=== PATIENT | male | born 1955 | race Caucasian/White ===

== ENCOUNTER → 2018-01-05 13:56 | Outpatient (CLI) | payer BC, SELFPAY ==
--- NOTE | 2018-01-05 13:57 | DI.REPORT_ITS ---
SYMPTOMS/DIAGNOSIS: BACK PAIN X 1 MONTH, M54.5, LT SIDED LOW BACK PAIN WITHOUT SCIATICA LUMBOSACRAL SPINE: Five views were obtained. The intervertebral disc spaces appear fairly well maintained. Mild hypertrophic spurring of the vertebral endplates and facet joints noted particularly in the lower lumbar region. There is no evidence of spondylolysis or spondylolisthesis. Mild degenerative changes of the SI joints noted. 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
== END ==
PROVIDERS: PCP Family Medicine; Visit Provider Family Medicine
DX: M54.5 Low back pain (principal); M47.816 Spondylosis without myelopathy or radiculopathy, lumbar region
CPT/HCPCS: 72110

== ENCOUNTER 2018-11-30 07:12 | Outpatient (CLI) | payer MEDICARE, BC, SELFPAY ==
[2018-11-30 08:11] LABS: Hemoglobin A1C 5.2 % (4.5-6.2)
[2018-11-30 08:51] LABS: Anion Gap 8.4 mmol/L (3-11); BUN 18 mg/dL (7-18); CO2 26.6 mmol/L (21.0-32.0); CREATININE 0.88 mg/dL (0.70-1.30); Calcium 8.9 mg/dL (8.5-10.1); Calculated LDL 78 mg/dL; Chloride 105 mmol/L (98-107); Cholesterol 161 mg/dL (50-200); Glucose 103 mg/dL (70-100); HDL Cholesterol 67 mg/dL (40-60); Potassium 4.3 mmol/L (3.5-5.1); Sodium 140 mmol/L (136-145); Triglyceride 80 mg/dL (30-150)
[2018-12-03 10:15] LABS: Rheumatoid Factor 8 IU/mL (<12.5)
[2018-12-03 14:30] LABS: ANA Interpretation Negative (NEGAT)
== END 2018-11-30 07:32 ==
PROVIDERS: PCP Family Medicine; Visit Provider Family Medicine
DX: M79.641 Pain in right hand (principal); M79.642 Pain in left hand; I10 Essential (primary) hypertension; R73.9 Hyperglycemia, unspecified
CPT/HCPCS: 36415; 80048; 80061; 83721; 83036; 86038; 86431

== ENCOUNTER 2019-01-04 09:04 | Outpatient (CLI) | payer MEDICARE, BC, SELFPAY ==
--- NOTE | 2019-01-04 09:00 | DI.RAD_ITS ---
SYMPTOM/DIAGNOSIS: PAIN RT HAND WITH EXERCISE, M79.643 RIGHT HAND: Three views. No acute fracture or dislocation is seen. There are mild degenerative changes seen in the interphalangeal joints of the hand. There is a small dystrophic calcification seen at the tip of the ulnar styloid process. No radiopaque foreign bodies are seen in the soft tissues. No suspicious lytic or sclerotic lesions are seen in the bones. IMPRESSION: Mild degenerative changes of the right hand.
== END 2019-01-04 09:24 ==
PROVIDERS: PCP Family Medicine; Visit Provider Family Medicine
DX: M79.641 Pain in right hand (principal); M19.041 Primary osteoarthritis, right hand
CPT/HCPCS: 73130

== ENCOUNTER → 2019-12-31 08:25 | Outpatient (BNVA) | payer MEDICARE, BC, SELFPAY | PROVIDERS: PCP Family Medicine; Referring Provider Family Medicine; Visit Provider Psychiatry & Neurology Neurology | DX: M54.17 Radiculopathy, lumbosacral region (principal); R25.2 Cramp and spasm; G57.31 Lesion of lateral popliteal nerve, right lower limb; G62.9 Polyneuropathy, unspecified; I10 Essential (primary) hypertension | CPT/HCPCS: 95885; 95908; 99205; 99215 ==

== ENCOUNTER 2020-01-06 00:43 | Outpatient (CLI) | payer MEDICARE, BC, SELFPAY ==
--- NOTE | 2020-01-06 07:15 | DI.MRI_ITS ---
EXAM: MR LUMBAR SPINE WO CLINICAL HISTORY: R S1 radiculopathy,M54.17. TECHNIQUE: Multiplanar multisequence MRI was performed. COMPARISON: MR MRI CERVICAL SP WO CONTRAST from 05/28/2019 FINDINGS: MR examination of the lumbosacral spine was performed according to the usual protocol. No significan t bony signal abnormality seen. Conus medullaris appears intact. No significant findings at L1-2. At L2-3, there is slight bilateral facet hypertrophic degenerative change. There is mild narrowing o f the lateral recesses bilaterally, no significant neural foraminal narrowing seen. At L3-4, there is a mild broad-based disc herniation which is most prominent right paracentral, there is mild narrowing of right lateral recess at this level. The right L4 nerve root could be impinged. There is mild bilateral hypertrophic facet change. No central canal spinal stenosis. No neural fo raminal stenosis. At L4-5, there is a mild disc bulge. No disc herniation, central canal spinal stenosis, neural mitali inal stenosis. At L5-S1 there is and unremarkable appearance of the intervertebral disc. No evidence of central can al spinal stenosis or neural foraminal stenosis. Mild bilateral facet hypertrophic changes. IMPRESSION: Mild broad-based predominantly right paracentral disc herniation at L3-4. Right L 4 nerve root could be impinged. Correlation with the patient's neurologic examination is requested. DATA REPOSITORY:
== END 2020-01-06 01:03 ==
PROVIDERS: PCP Family Medicine; Visit Provider Psychiatry & Neurology Neurology
DX: M51.26 Other intervertebral disc displacement, lumbar region (principal)
CPT/HCPCS: 72148

== ENCOUNTER 2020-10-21 16:37 | Emergency (ER) | payer MEDICARE, BC, SELFPAY ==
--- NOTE | 2020-10-21 16:44 | ED.GENADUL_ITS ---
Discharge Plan Disposition Patient Disposition: HOME Condition: Stable Discharge Details Clinical Impression: Leg swelling Primary Care Provider: Mehrdad Win ED Provider: Wellington Owens Home Meds and New Rx's Prescriptions: Continued trazodone 50 mg tablet 50 mg PO QHS PRN (Reason: sleep) Qty: 30 RF: 6 albuterol sulfate [Proventil HFA] 90 mcg/actuation HFA aerosol inhaler 2 puff Inhalation Q6H PRN Qty: 1 RF: 5 fluticasone propionate [Flonase Allergy Relief] 50 mcg/actuation spray,suspension 1 - 2 spray NS DAILY Qty: 15.8 RF: 5 Flovent HFA 110 mcg/actuation HFA aerosol inhaler 2 puff Inhalation BID Qty: 1 RF: 4 hydrochlorothiazide 25 mg tablet 25 mg PO DAILY Qty: 30 RF: 5 losartan 100 mg tablet 100 mg PO DAILY Qty: 30 RF: 4 sildenafil 100 mg tablet See Rx Instructions PO ONCE Qty: 20 RF: 3 gabapentin 300 mg capsule 300 mg PO QHS Qty: 60 RF: 6 acetaminophen [Tylenol] 325 MG tablet 650 mg PO PRN PRNRF: 0 Discharge Instructions Instructions: Edema (ED) Additional Instructions: Given your evaluation, clinically I have a low suspicion for DVT but I do believe that obtaining an ultrasound of your legs is completely reasonable. I have filled out the appropriate paperwork for the ultrasound to take place, please contact radiology tomorrow morning during business hours to set up your ultrasound. After the ultrasound you will check back into the ER for the results. In the meantime, please watch for new or worsening symptoms and return to the ER for any concerns. Lastly, I do recommend contacting your primary care provider tomorrow after ultrasound to discuss your ongoing symptoms and need for outpatient reevaluation. Medical Decision Making 65-year-old gentleman presents to the ER complaining of bilateral leg pain that has been present for years, now with intermittent swelling over the past couple of months, worse on the left side but currently has none in either leg. Discussed symptoms over the portal with his primary care provider, sent to the ER for DVT rule out. He denies any shortness of breath, chest pain, current swelling of his legs, redness, warmth, history of DVT. Unfortunately he is here after typical hours when we have ultrasound on staff. Patient states himself that he does not believe he has a DVT, clinically I have extremely low suspicion. Therefore will not prophylactically treat with a single dose of Lovenox now. We will set him up for a bilateral lower extremity venous ultrasound tomorrow to further evaluate for potential DVT. He will return to the ER for result, and he will also contact his primary care provider for his ongoing symptoms which will likely require outpatient reevaluation. Patient was encouraged to return to the ER sooner as needed. He has no additional questions or concerns and is comfortable with this plan. Medical Records Medical records reviewed: Yes I reviewed the patient's medical records. HPI General Mode of arrival: ambulatory . Date/Time Provider Initiated Documentation: 10/21/20 16:42 . Limitations to Documentation: no limitations . Information obtained by: patient . HPI Narrative: This is a 65-year-old gentleman with a past medical history that includes asthma, chronic back pain with radiculopathy,, hypertension, aneurysm of the ascending aorta being monitored as an outpatient. He is presenting today for ongoing right leg pain that he states is in the posterior leg both upper and lower for years, now with bilateral intermittent leg swelling. He believes that the swelling is worse in his left leg when compared to his right although currently has no swelling whatsoever. He states that he contacted his primary care provider today and was directed to the ER to rule out a DVT. Patient denies history of DVT, chest pain, shortness of breath. He is not anticoagulated. He denies any current swelling in his legs, redness, warmth, calf pain in his left leg. He reports th at he does have pain in his right calf but it is chronic. Denies numbness, tingling, weakness. Patient states that the swelling is typically worse after a long day on his feet and improves typically in the morning. He does state that on September [address] here from [place]. The swelling has been intermittent at present for a couple of months. Related Data Home Medications Medication Instructions Recorded Confirmed acetaminophen [Tylenol] 650 mg PO PRN PRN 12/11/17 02/13/20 albuterol sulfate 90 mcg/actuation 2 puff INHALATION Q6H PRN #1 05/04/20 aerosol inhaler inhaler fluticasone propionate 110 2 puff INHALATION BID #1 inhaler 05/04/20 mcg/actuation HFA aerosol inhaler fluticasone propionate 50 1 - 2 spray NS DAILY #15.8 ml 05/04/20 mcg/actuation nasal spray,suspension hydrochlorothiazide 25 mg tablet 25 mg PO DAILY #30 tab 05/04/20 losartan 100 mg tablet 100 mg PO DAILY #30 tab-cap 05/04/20 sildenafil 100 mg tablet See Rx Instructions PO ONCE #20 tab 05/04/20 trazodone 50 mg tablet 50 mg PO QHS PRN #30 tab 09/15/20 09/15/20 gabapentin 300 mg capsule 300 mg PO QHS #60 cap 10/02/20 Previous Rx's Medication Instructions Recorded albuterol sulfate 90 mcg/actuation 2 puff INHALATION Q6H PRN #1 05/04/20 aerosol inhaler inhaler fluticasone propionate 110 2 puff INHALATION BID #1 inhaler 05/04/20 mcg/actuation HFA aerosol inhaler fluticasone propionate 50 1 - 2 spray NS DAILY #15.8 ml 05/04/20 mcg/actuation nasal spray,suspension hydrochlorothiazide 25 mg tablet 25 mg PO DAILY #30 tab 05/04/20 losartan 100 mg tablet 100 mg PO DAILY #30 tab-cap 05/04/20 sildenafil 100 mg tablet See Rx Instructions PO ONCE #20 tab 05/04/20 trazodone 50 mg tablet 50 mg PO QHS PRN #30 tab 09/15/20 gabapentin 300 mg capsule 300 mg PO QHS #60 cap 10/02/20 Allergies Allergy/AdvReac Type Severity Reaction Status Date / Time Iodinated Contrast Media Allergy Unverified 09/15/20 11:11 [Iodinated Contrast- Oral and IV Dye] aspartame AdvReac Intermediate MIGRAINE Unverified 09/15/20 11:11 chocolate flavor AdvReac Mild MIGRAINE Unverified 09/15/20 11:11 Review of Systems Constitutional Constitutional: Denies fever(s) and Denies weakness Cardiovascular Cardiovascular: Denies chest pain and Denies dyspnea Respiratory Respiratory: Denies dyspnea Musculoskeletal Musculoskeletal: Denies numbness and Denies tingling Integumentary/Breasts Skin/Breast: Denies erythema and Denies rash Neurologic Neurologic: Denies numbness, Denies tingling and Denies weakness [facility] Medical History Aneurysm, ascending aorta (08/24/15) [place] [facility] [place] 2012 Asthma Back pain BPH loc w/o ur obs/LUTS (08/24/15) Derange anterior horn medial meniscus left knee due to old injury (08/24/15) Got better with physical therapy Essential hypertension Neck pain Overactive bladder (08/24/15) Sciatica of right side Sexual function problem Surgical History Rotator Cuff Repair (~1999) RIGHT S/P lumbar spine operation S/P skin cancer resection Status post rotator cuff repair Family History Brother Dissection of aorta Aortic aneurysm Brother Sarcoma Aortic aneurysm Mother , 92 Heart disease Father Dissection of aorta Heart disease Brother Aortic aneurysm Brother Aortic aneurysm Social History Smoking/Tobacco Use Status: Never Smoking risk assessment performed?: Yes Alcohol Intake: current Alcohol Intake frequency: 0-2 drinks per day Alcohol type: beer and wine Drug use: Never Substance use type: does not use Caregiver/Support person: No Household members: spouse Housing: house Communication Needs: None Do you need help understanding health information?: Rarely Pets and animals: Yes Pets and animals: dog(s) Sexually active: No Do you think of yourself as: straight/heterosexual Current gender identity: male What is your relationship status?: How often do you talk on the phone with friends or family?: decline to answer How often do you get together with friends or relatives?: decline to answer How often do you attend jehovah's witness or sikhism services?: decline to answer Do you belong to any clubs or organized social groups?: decline to answer Panel score (0-1 are the most socially isolated patients): 1 What type of physical activity do you participate in: walking Duration: > 90 minutes/day Frequency: 5-6 times per week Nimco/Restoration: Religious Special nimco needs: No Seatbelt use: always Drive intox or ride w/intox recycle driver: No Do you feel safe in your relationship?: Yes Exam Const General: cooperative, healthy appearing, comfortable and no acute distress Orientation: alert and awake [facility] Head: normal to inspection, normocephalic and atraumatic Eyes General: appearance normal, both eyes and all related structures Conjunctivae: conjunctivae normal Neck Neck: normal visual inspection, trachea midline and supple Resp Effort & Inspection: normal respiratory effort and able to speak in complete sentences Auscultation: clear to auscultation bilaterally Cardio Rate: regular rate Rhythm: regular rhythm Skin General skin exam: no rashes or lesions noted Neuro General: patient alert, patient awake, moves all extremities and no focal motor deficits Cognition: normal cognition Speech: speech normal Gait: normal gait Motor: muscle tone normal throughout Sensory Exam: no sensory deficits noted Extrem General: normal to inspection, full ROM, capillary refill normal, no pedal edema, no calf tenderness and other (Negative Homans bilaterally) Psych Appearance: grossly normal Mental Status: mental status grossly normal
[2020-10-21 16:45] VITALS: PULSE 72; RESP 13; TEMP 36.5; O2SAT 96
[2020-10-21 17:31] VITALS: PULSE 72; RESP 13; RESP 16; TEMP 36.5; O2SAT 96
== END 2020-10-21 17:29 | disposition home or self-care (01) ==
PROVIDERS: Emergency Provider Physician Assistant; PCP Nurse Practitioner Family
DX: R22.43 Localized swelling, mass and lump, lower limb, bilateral (principal)
CPT/HCPCS: 99281; 99283

== ENCOUNTER 2020-10-22 08:48 | Emergency (ER) | payer MEDICARE, BC, SELFPAY ==
[2020-10-22 08:56] VITALS: BP 152/98; PULSE 65; RESP 16; TEMP 36.9; O2SAT 98
--- NOTE | 2020-10-22 12:13 | W.ED.GENAD ---
Discharge Plan Disposition Patient Disposition: HOME Condition: Good Discharge Details Clinical Impression: Peripheral edema Primary Care Provider: Mehrdad Win ED Provider: Yolanda Cleaning Home Meds and New Rx's Prescriptions: No Action trazodone 50 mg tablet 50 mg PO QHS PRN (Reason: sleep) Qty: 30 RF: 6 albuterol sulfate [Proventil HFA] 90 mcg/actuation HFA aerosol inhaler 2 puff Inhalation Q6H PRN Qty: 1 RF: 5 fluticasone propionate [Flonase Allergy Relief] 50 mcg/actuation spray,suspension 1 - 2 spray NS DAILY Qty: 15.8 RF: 5 Flovent HFA 110 mcg/actuation HFA aerosol inhaler 2 puff Inhalation BID Qty: 1 RF: 4 hydrochlorothiazide 25 mg tablet 25 mg PO DAILY Qty: 30 RF: 5 losartan 100 mg tablet 100 mg PO DAILY Qty: 30 RF: 4 sildenafil 100 mg tablet See Rx Instructions PO ONCE Qty: 20 RF: 3 gabapentin 300 mg capsule 300 mg PO QHS Qty: 60 RF: 6 acetaminophen [Tylenol] 325 MG tablet 650 mg PO PRN PRNRF: 0 Discharge Instructions Additional Instructions: Please follow-up with Dr. Leigh Your ultrasound today was negative Please return should you have new or worsening complaints Medical Decision Making Patient with acute on chronic peripheral edema, negative ultrasound per radiology interpretation in my review Patient declines additional evaluation, he will follow up with his primary care physician, he does report persistent cramping to bilateral lower extremities which is not new for him but declines additional evaluation at this time He denies any chest pain or shortness of breath He states that he has marked improvement to his peripheral edema today He is given a threshold to return with new or worsening complaints and he will be referred back to his primary care physician, Dr. Leigh Differential Diagnosis Differential Diagnosis: Pulmonary embolism, DVT, CHF, peripheral edema Medical Records Medical records reviewed: Yes I reviewed the patient's medical records. Lab Data Lab results reviewed: Yes I reviewed the patient's lab results. HPI General Mode of arrival: ambulatory. Date/Time Provider Initiated Documentation: 10/22/20 08:56. Limitations to Documentation: no limitations. Information obtained by: patient. HPI Narrative: This 65-year-old male with past medical history of hypertension, ascending aortic aneurysm, lower extremity pain, chronic back pain, peripheral edema presents with report of peripheral edema over the past several days for which she was evaluated in the emergency room yesterday. He states that he had an ultrasound performed this morning and is presenting for the results of his ultrasound. He actually states that the swelling has markedly improved. He denies any new chest pain or shortness of breath. He denies any abdominal pain. He denies any skin discoloration to his lower extremities. He denies any recent flights, surgeries, long drives. Related Data Home Medications Medication Instructions Recorded Confirmed acetaminophen [Tylenol] 650 mg PO PRN PRN 12/11/17 02/13/20 albuterol sulfate 90 mcg/actuation 2 puff INHALATION Q6H PRN #1 05/04/20 aerosol inhaler inhaler fluticasone propionate 110 2 puff INHALATION BID #1 inhaler 05/04/20 mcg/actuation HFA aerosol inhaler fluticasone propionate 50 1 - 2 spray NS DAILY #15.8 ml 05/04/20 mcg/actuation nasal spray,suspension hydrochlorothiazide 25 mg tablet 25 mg PO DAILY #30 tab 05/04/20 losartan 100 mg tablet 100 mg PO DAILY #30 tab-cap 05/04/20 sildenafil 100 mg tablet See Rx Instructions PO ONCE #20 tab 05/04/20 trazodone 50 mg tablet 50 mg PO QHS PRN #30 tab 09/15/20 09/15/20 gabapentin 300 mg capsule 300 mg PO QHS #60 cap 10/02/20 Previous Rx's Medication Instructions Recorded albuterol sulfate 90 mcg/actuation 2 puff INHALATION Q6H PRN #1 05/04/20 aerosol inhaler inhaler fluticasone propionate 110 2 puff INHALATION BID #1 inhaler 05/04/20 mcg/actuation HFA aerosol inhaler fluticasone propionate 50 1 - 2 spray NS DAILY #15.8 ml 05/04/20 mcg/actuation nasal spray,suspension hydrochlorothiazide 25 mg tablet 25 mg PO DAILY #30 tab 05/04/20 losartan 100 mg tablet 100 mg PO DAILY #30 tab-cap 05/04/20 sildenafil 100 mg tablet See Rx Instructions PO ONCE #20 tab 05/04/20 trazodone 50 mg tablet 50 mg PO QHS PRN #30 tab 09/15/20 gabapentin 300 mg capsule 300 mg PO QHS #60 cap 10/02/20 Allergies Allergy/AdvReac Type Severity Reaction Status Date / Time Iodinated Contrast Media Allergy Unverified 09/15/20 11:11 [Iodinated Contrast- Oral and IV Dye] aspartame AdvReac Intermediate MIGRAINE Unverified 09/15/20 11:11 chocolate flavor AdvReac Mild MIGRAINE Unverified 09/15/20 11:11 General Stated Complaint: Recheck SUNG: 5 Review of Systems Narrative: Review of systems obtained x7 aside from where indicated in HPI [facility] Medical History Aneurysm, ascending aorta (08/24/15) Followed at [facility] [place]. Stable May 2012 Asthma Back pain BPH loc w/o ur obs/LUTS (08/24/15) Derange anterior horn medial meniscus left knee due to old injury (08/24/15) Got better with physical therapy Essential hypertension Neck pain Overactive bladder (08/24/15) Sciatica of right side Sexual function problem Surgical History Rotator Cuff Repair (~1999) RIGHT S/P lumbar spine operation S/P skin cancer resection Status post rotator cuff repair Family History Brother Dissection of aorta Aortic aneurysm Brother Sarcoma Aortic aneurysm Mother , 92 Heart disease Father Dissection of aorta Heart disease Brother Aortic aneurysm Brother Aortic aneurysm Social History Smoking/Tobacco Use Status: Never Smoking risk assessment performed?: Yes Alcohol Intake: current Alcohol Intake frequency: 0-2 drinks per day Alcohol type: beer and wine Drug use: Never Substance use type: does not use Caregiver/Support person: No Household members: spouse Housing: house Communication Needs: None Do you need help understanding health information?: Rarely Pets and animals: Yes Pets and animals: dog(s) Sexually active: No Do you think of yourself as: straight/heterosexual Current gender identity: male What is your relationship status?: How often do you talk on the phone with friends or family?: decline to answer How often do you get together with friends or relatives?: decline to answer How often do you attend tenriism or tenriism services?: decline to answer Do you belong to any clubs or organized social groups?: decline to answer Panel score (0-1 are the most socially isolated patients): 1 What type of physical activity do you participate in: walking Duration: > 90 minutes/day Frequency: 5-6 times per week Nimco/Confucianism: Episcopalian Special nimco needs: No Seatbelt use: always Drive intox or ride w/intox cdl truck driver: No Do you feel safe at home: Yes Do you feel safe in your relationship?: Yes Exam Const General: cooperative, comfortable and no acute distress Resp Effort & Inspection: normal respiratory effort Auscultation: clear to auscultation bilaterally Cardio Rate: regular rate Rhythm: regular rhythm GI Other: No pulsatile mass, nontender, no CVA tenderness or bruising Skin General skin exam: no rashes or lesions noted Neuro General: patient alert and patient oriented x3 Extrem Other: Distal pulses intact to bilateral upper and lower extremities, 1+ edema to lower extremity, nontender Course Vital Signs Vital signs: Vital Signs Temperature 36.9 C 10/22/20 08:56 Pulse 65 10/22/20 08:56 Respiratory Rate 16 10/22/20 08:56 Blood Pressure 152/98 H 10/22/20 08:56 Pulse Oximetry 98 10/22/20 08:56 Temperature 36.9 C 10/22/20 08:56 Temperature Source Skin 10/22/20 08:56 Pulse 65 10/22/20 08:56 Respiratory Rate 16 10/22/20 08:56 Respiratory Effort Non-Labored 10/22/20 09:19 Blood Pressure 152/98 H 10/22/20 08:56 Blood Pressure Position Sitting 10/22/20 08:56 Pulse Oximetry 98 10/22/20 08:56 Oxygen Delivery Method Room Air 10/22/20 08:56 Oxygen Flow Rate 0 10/22/20 08:56 Pain Level 0 10/22/20 08:56
== END 2020-10-22 09:17 | disposition home or self-care (01) ==
PROVIDERS: Emergency Provider Physician Assistant; PCP Nurse Practitioner Family
DX: R60.0 Localized edema (principal)

== ENCOUNTER 2020-10-22 11:29 | Outpatient (CLI) | payer MEDICARE, BC, SELFPAY ==
--- NOTE | 2020-10-22 | DI.US_ITS ---
Exam(s) US EXTREMITY VENOUS BI EXAM: US EXTREMITY VENOUS BI CLINICAL HISTORY: PAIN/SWELLING. TECHNIQUE: Bilateral lower extremity venous ultrasound performed using grayscale, color-flow, and sp ectral Doppler analysis. COMPARISON: No exams were available for comparison FINDINGS: The bilateral common femoral, femoral and popliteal veins demonstrate normal compressibility, augment ation, and color Doppler. The posterior tibial veins are patent. No superficial thrombophlebitis is identified. No Hope's cyst or hematoma is seen. IMPRESSION: Right: Negative for DVT Left: Negative for DVT DATA REPOSITORY:
== END 2020-10-22 11:49 ==
PROVIDERS: PCP Nurse Practitioner Family; Visit Provider Physician Assistant
DX: M79.662 Pain in left lower leg (principal); R22.43 Localized swelling, mass and lump, lower limb, bilateral; M79.661 Pain in right lower leg
CPT/HCPCS: 93970

== ENCOUNTER 2020-11-03 02:59 | Outpatient (CLI) | payer MEDICARE, BC, SELFPAY ==
[2020-11-03 12:28] LABS: HCT 43.1 % (40.0-50.0); HGB 13.9 g/dL (13.5-17.5); MCH 28.2 pg (27.0-33.0); MCHC 32.3 % (32.0-36.0); MCV 87.4 fL (80-95); MPV 9.9 fL (8.0-11.0); Platelet Count 220 10^3/uL (130-400); RBC 4.93 10^6/uL (4.36-5.78); RDW-SD 44.4 fL; WBC 5.89 10^3/uL (4.4-10.8)
[2020-11-03 13:14] LABS: ALT 26 U/L (16-63); AST 18 U/L (15-37); Albumin 3.4 g/dL (3.4-5.0); Alkaline Phosphatase 65 U/L (46-116); Anion Gap 9.6 mmol/L (3-11); BUN 15 mg/dL (7-18); Bilirubin, Total 0.5 mg/dL (0.2-1.0); CO2 25.4 mmol/L (21.0-32.0); Calcium 8.8 mg/dL (8.5-10.1); Chloride 107 mmol/L (98-107); Glucose 89 mg/dL (74-106); Potassium 4.1 mmol/L (3.5-5.1); Sodium 142 mmol/L (136-145); Total Protein 6.3 g/dL (6.4-8.2)
== END 2020-11-03 03:00 | disposition home or self-care (01) ==
LOC: LOS 03:00
PROVIDERS: PCP Nurse Practitioner Family; Visit Provider Nurse Practitioner Family
DX: R25.2 Cramp and spasm (principal); R19.8 Other specified symptoms and signs involving the digestive system and abdomen; M79.661 Pain in right lower leg
CPT/HCPCS: 36415; 80053; 85027

== ENCOUNTER 2020-12-15 11:48 | Outpatient (CLI) | payer MEDICARE, BC, SELFPAY ==
--- NOTE | 2020-12-15 06:00 | DI.RAD_ITS ---
Exam(s) XR PAIN CLINIC LUMBAR SP 2V EXAM: XR PAIN CLINIC LUMBAR SP 2V CLINICAL HISTORY: Dx: Lumbar Radiculopathy TECHNIQUE: 2D and realtime digital imaging was performed. COMPARISON: No exams were available for comparison FINDINGS: C-arm fluoroscopy is utilized by Dr. Tarango during apparent sacral epidural injection. Please see the pr ocedure note. IMPRESSION: RADIATION DOSE DELIVERED: Ka,r=5.85 mGy Total DLP
[2020-12-15 11:56] VITALS: BP 150/91; PULSE 66; RESP 18; TEMP 36.6; O2SAT 97
[2020-12-15] MEDS: Dexamethasone Sod. Phos./Pres-Free 10 MG/ML VIAL IJ (13:10)
[2020-12-15 13:44] VITALS: BP 168/96; PULSE 72; RESP 17; O2SAT 99
--- NOTE | 2020-12-15 14:29 | PDOC.PAIN_ITS ---
Pain Clinic Procedure Note Procedure Note Procedure Note: CANDAL EPIDURAL STEROID WITH CATHETER INJECTION PROCEDURE NOTE Pre-operative diagnosis: lumbar radiculitis Post-operative diagnosis: same as above COMMENTS: patient is status post right L4-5 hemilaminectomy with partial facetectomy, foraminotomy and discectomy (05/2018) in [place] for persistent right leg pain and weakness with dorsiflexion and plantar flexion. patient reports he regained his muscle strength of right foot although those muscles feel slower compared to the left leg. He splits his time between [place] and [place]. He was seen by Dr Cavanaugh at [facility] [place] for chronic right leg pain and was tried on several oral regimen including CBZ, GBP and lyrica. 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 there is also evidence of right peroneal neuropathy and delayed right tibial F wave. Patient was also seen by Dr Thomson in 12/11/2020 who did not think there was any indication for surgical intervention. Curently, patient has pain involving right posterior buttock, right calf. Pain level averages 4-6 depending on the intensity of physical activity. Unfortunately, he cannot tolerate oral neuropathic pain agents. He underwent right L5 TFESI by outside record in [place] which provided 2 weeks of 70% pain relief after 1st injection and on repeat injection in 04/2020, provided approximately 2 months of pain relief. patient has a listed iodine contrast media allergy with diffuse hives after an image of his shoulder about 10 years ago. He had received Solumedrol, Benadryl and Versed during his procedure in [place]. Per [facility] protocol for premedication of contrast allergy, for elective procedures, patient needs to take oral prednisone starting 11 hours before his scheduled procedure. Given this, i discussed with patient about changing the approach of the procedure from TFESI to caudal , which can be safely performed without the need of contrast and allow catheter to reach S1 level which will pro vide symptomatic relief patient is also instructed to follow up with Dr Cavanaugh with regard to lumbar radiculitis versus adhesive arachnoiditis. Gael Lizarraga has been referred to the [facility] for lumbar epidural steroid injection. Patient was greeted by the nurse who verified patients name and . Patient was then taken to the fluoroscopy suite. Patient was interviewed and the medical record reviewed. There were no medical, pharmacologic, radiographic, or other structural contraindications to attempting fluoroscopically guided lumbar epidural steroid injection. Risks and expected side effects as well as potential benefits of the procedure were reviewed and voiced concerns addressed. The patient consent form was signed and witnessed. Standard time-out procedure was performed. Patient was placed in the prone position on the fluoroscopy table and automated blood pressure cuff and pulse oximeter applied. The skin entry point for entering/approaching the epidural space by a sacral hiatus and marked. Following thorough chlorhexadine preparation of the skin and draping and 1% lidocaine infiltration of the skin entry point and subcutaneous tissues, a 17 gauge Touhy needle was placed under fluoroscopic guidance and with loss of resistance technique into the epidural space. Needle tip placement and depth were aided and confirmed by fluoroscopy. There was no paresthesia or return of blood or CSF through the needle. An Arrow cath was thread to the S1 and no Omnipaque 240 was injected with clear epidural spread confirmed with fluoroscopy. 15mg of preservative free dexamethasone was injected followed by 1cc of preservative free 1% lidocaine. There was not any unusual discomfort expressed. Vital signs were stable throughout the procedure and were as recorded in nursing records. Follow up plans and appointments were discussed.Post procedure instruction was given as documented in nursing records and having met discharge criteria and was discharged from the [facility]. COMMENTS: patient reports pre-VAS score 5/10 and post-procedure pain level 0/10. For future injection purposes, please follow [facility]'s established pre=medication protocol for existing contrast allergy as follows: for elective procedure: a. prednisone - 50mg by mouth at 13 hours, 7 hours and 1 hour before receiving contrast medial with IV benadryl 50mg IV 1 hour before receiving contrast If this procedure fails to achieve significant pain relief, would recommend investigate with MRI L spine wwo contrast to rule out adhesive arachnoiditis as a potential cause of pain. Julián Tarango MD Pain Management
== END 2020-12-15 11:49 | disposition home or self-care (01) ==
LOC: PC 11:48
PROVIDERS: PCP Nurse Practitioner Family; Visit Provider Internal Medicine
DX: M54.16 Radiculopathy, lumbar region (principal)
CPT/HCPCS: 62323; 72100

== ENCOUNTER → 2021-09-20 13:43 | Outpatient (CLI) | payer MEDICARE, BC, SELFPAY ==
--- NOTE | 2021-09-20 11:15 | DI.US_ITS ---
Exam(s) US LOWER EXTREMITY VENOUS RT EXAM: US LOWER EXTREMITY VENOUS RT CLINICAL HISTORY: pain right calf, post op, M79.604. TECHNIQUE: Lower extremity venous ultrasound performed using grayscale, color-flow, and spectral Do ppler analysis. COMPARISON: No exams were available for comparison FINDINGS: The common femoral, femoral and popliteal veins demonstrate normal compressibility, augmentation, and color Doppler. The posterior tibial veins are patent. Thrombus is noted in the saphenous vein from the thigh to the ankle. There is no abnormal dilatation. Finding may be secondary to sclerotherapy. . No hematoma or Hope's cyst is seen. Edema in proximal calf. IMPRESSION: Saphenous vein noncompressible is could be secondary to sclerotherapy.. No evidence of DVT. DATA REPOSITORY:
== END ==
PROVIDERS: PCP Nurse Practitioner Family; Visit Provider Physician Assistant
DX: M79.604 Pain in right leg (principal); I82.811 Embolism and thrombosis of superficial veins of right lower extremity
CPT/HCPCS: 93971

== ENCOUNTER 2022-12-20 03:56 | Outpatient (CLI) | payer MEDICARE, BC, SELFPAY ==
[2022-12-20 10:29] LABS: Estimated GFR 81.47 (mL/min/1.73m2)
== END 2022-12-20 03:57 | disposition home or self-care (01) ==
PROVIDERS: PCP Nurse Practitioner Family; Visit Provider Nurse Practitioner Family
DX: I10 Essential (primary) hypertension (principal)
CPT/HCPCS: 36415; 82565; 84132

== ENCOUNTER → 2023-11-22 10:55 | Outpatient (CLI) | payer MEDICARE, BC, SELFPAY ==
--- NOTE | 2023-11-22 11:03 | DI.RAD_ITS ---
Exam(s) XR KNEE RT 3V AP,LAT,JORGE EXAM: XR KNEE RT 3V AP,LAT,JORGE CLINICAL HISTORY: evaluate pathology, M25.561. TECHNIQUE: 2D digital imaging was performed. Three views. COMPARISON: No exams were available for comparison FINDINGS: BONES: No acute fracture is present. No bony destructive lesion is seen. JOINTS: The knee is normally aligned. No joint effusion is seen. The joint spaces are maintained. No visible degenerative changes. SOFT TISSUE: Normal. IMPRESSION: Unremarkable radiographs of the right knee. DATA REPOSITORY: RADIATION DOSE DELIVERED:
== END ==
PROVIDERS: PCP Nurse Practitioner Family; Visit Provider Nurse Practitioner Family
DX: M25.561 Pain in right knee (principal)
CPT/HCPCS: 73562

== ENCOUNTER 2024-03-04 10:50 | Outpatient (CLI) | payer MEDICARE, BC, SELFPAY ==
[2024-03-04 09:03] LABS: Calculated LDL 90 mg/dL (<100); Cholesterol 168 mg/dL (<200); Estimated GFR 80.47 (mL/min/1.73m2); HDL Cholesterol 66 mg/dL (40-60); Potassium 3.9 mmol/L (3.5-5.1); Triglyceride 64 mg/dL (<150)
[2024-03-04 18:27] LABS: PSA, Screening 4.2 ng/mL (<=6.5)
== END 2024-03-04 10:51 | disposition home or self-care (01) ==
LOC: LBO 10:50
PROVIDERS: PCP Nurse Practitioner Family; Visit Provider Nurse Practitioner Family
DX: Z12.5 Encounter for screening for malignant neoplasm of prostate (principal); I10 Essential (primary) hypertension; Z13.6 Encounter for screening for cardiovascular disorders
CPT/HCPCS: 36415; 80061; 84153; 82565; 84132

== ENCOUNTER 2025-02-28 10:13 | Emergency (ER) | payer MEDICARE, BC, SELFPAY ==
[2025-02-28 10:16] VITALS: BP 188/110; PULSE 70; RESP 16; TEMP 36.9; O2SAT 98
[2025-02-28 10:19] VITALS: BP 188/110; PULSE 70; RESP 16; TEMP 36.9; O2SAT 98
--- NOTE | 2025-02-28 10:45 | DI.US_ITS ---
Exam(s) US SCROTUM EXAM: US SCROTUM CLINICAL HISTORY: L testicular pain. TECHNIQUE: Scrotal ultrasound performed using grayscale, color-flow and spectral Doppler analysis. COMPARISON: No exams were available for comparison FINDINGS: RIGHT TESTICLE: 4.4 x 2.6 x 3.0 cm Echogenicity: Normal. Contour: Smooth. Mass: None seen. Microlithiasis: None. Hydrocele: 6 x 4 x 2.5 cm. Varicocele: None. Hernia: No peristalsing bowel loop identified. Epididymis: 6 millimeter spermatocele in the head. Scrotum: Normal. LEFT TESTICLE: 4.0 x 2.7 x 3.6 cm Echogenicity: Normal. Contour: Smooth. Mass: None seen. Microlithiasis: None. Hydrocele: 6 0.1 x 3.4 x 3.8 cm. Varicocele: None. Hernia: No peristalsing bowel loop identified. Epididymis: Normal. Scrotum: Normal. DOPPLER: Color: Symmetric and uniform, no hyperemia. Duplex: Bilateral testicular arterial waveforms visualized. IMPRESSION: Bilateral hydroceles. Normal appearing testicles. DATA REPOSITORY:
[2025-02-28] MEDS: methylPREDNISolone SUCC 125 MG VIAL IVP (11:38)
[2025-02-28] MEDS: diphenhydrAMINE 50 MG/ML VIAL 25 MG IVP (11:39)
[2025-02-28 11:48] LABS: Glucose Negative (Negative)
[2025-02-28 11:49] LABS: Abs Immature Grans 0.02 10^3/uL (0.0-0.06); HCT 39.6 % (40.0-50.0); HGB 13.0 g/dL (13.5-17.5); Immature Grans % 0.3 %; MCH 28.4 pg (27.0-33.0); MCHC 32.8 % (32.0-36.0); MCV 87 fL (80-95); MPV 9.3 fL (8.0-11.0); Platelet Count 184 10^3/uL (130-400); RBC 4.57 10^6/uL (4.36-5.78); RDW 13.8 % (11.8-14.1); RDW-SD 43.7 fL; WBC 6.49 10^3/uL (4.4-10.8)
[2025-02-28 12:03] LABS: Magnesium 2.4 mg/dL (1.8-2.4)
[2025-02-28 12:09] LABS: ALT 23 U/L (16-63); AST 16 U/L (15-37); Albumin 3.7 g/dL (3.4-5.0); Alkaline Phosphatase 62 U/L (46-116); Anion Gap 8.4 mmol/L (3-11); BUN 17 mg/dL (7-18); Bilirubin, Total 0.8 mg/dL (0.2-1.0); CO2 28.6 mmol/L (21.0-32.0); Calcium 9.2 mg/dL (8.5-10.1); Chloride 104 mmol/L (98-107); Estimated GFR 79.97 (mL/min/1.73m2); Glucose 85 mg/dL (74-106); Lipase 36 U/L (<78); Potassium 4.2 mmol/L (3.5-5.1); Sodium 141 mmol/L (136-145); Total Protein 7.5 g/dL (6.4-8.2)
--- NOTE | 2025-02-28 12:10 | W.ED.GENAD ---
Discharge Plan Disposition Patient Disposition: Home Condition: Stable Discharge Details Clinical Impression: Diverticulitis Primary Care Provider: Mehrdad Win ED Provider: Dominic Avitia Home Meds and New Rx's Prescriptions: New ketorolac 10 mg tablet 10 mg PO QID 5 Days Qty: 20 0RF Rx Instructions: maximum total duration of 5 days from all oral, intranasal, or parenteral formulations amoxicillin-pot clavulanate 875-125 mg tablet 1 tab PO BID 10 Days Qty: 20 0RF Continued pneumoc 13-ignacio conj-dip cr(PF) 0.5 mL syringe 0.5 ml IM ONCE Qty: 0.5 0RF potassium chloride 10 mEq capsule, extended release 10 meq PO DAILY magnesium 200 mg tablet 200 mg PO DAILY albuterol sulfate 90 mcg/actuation HFA aerosol inhaler 2 puff Inhalation Q6H PRN Qty: 1 5RF Rx Instructions: rescribed by [facility] sildenafil 100 mg tablet See Rx Instructions PO ONCE Qty: 20 3RF Rx Instructions: .5 to 1 tab PO once; administer 30 minutes to 4 hours before activity losartan 25 mg tablet 25 mg PO DAILY Qty: 90 3RF Held celecoxib [Celebrex] 100 mg capsule 100 mg PO BID Qty: 180 3RF Hold Instructions: Resume on 03/05/25. HOLD while on ketorolac Discharge Instructions Instructions: Hydrocele, Ketorolac (Systemic), Diverticulitis, Amoxicillin and Clavulanate Additional Instructions: Emergency department for your lower abdominal pain, your CT scan shows diverticulitis, your ultrasound shows bilateral hydroceles which are usually self resolving condition of the scrotum. Your laboratory workup shows no signs of severe infection or significant electrolyte derangement, there is no urinary tract infection. I have sent a prescription for an antibiotic called Augmentin that will help treat your diverticulitis as well as 5 days of a prescription strength anti-inflammatory called ketorolac to take 4 times a day, hold your Celebrex while on this medication, also take 650 mg of Tylenol 4 times per day about long term between ketorolac dosings. Eat a bland or liquid diet for at least the first few days of treatment. Return for any significant worsening of your abdominal pain especially with fever, complete lack of bowel movements, intractable nausea or vomiting or any other emergent concerns. Referrals: Mehrdad Win NP [Primary Care Provider, Medicine] Discharge Data Discharge Date/Time-TO BE ENTERED AT DEPARTURE: 02/28/25 13:21 HPI General Date/Time Provider Initiated Documentation: 02/28/25 10:28. HPI Narrative: 70 year-old male presents to ED today by POV/ambulating with a chief complaint of lower abdominal/testicular pain with onset for the past few days with diarrhea ongoing for some months intermittently. Quality described as generalized lower abdominal pain, brief sharp radiation into testicles, no radiation to fever, nausea/vomiting, no issues with PO intake, denies chest pain/shortness of breath. Severity is described as mild to moderate. Palliating factors include relief after bowel movements. Provoking factors include nothing specific. Events leading up to the incident/Associated Symptoms: Patient endorses history of diverticulitis in the remote past. Patient not anticoagulated. Related Data Home Medications ?Medication ?Instructions ?Recorded ?Confirmed albuterol sulfate 90 mcg/actuation 2 puff inhalation Q6H PRN ##1 02/29/24 02/28/25 aerosol inhaler sildenafil 100 mg tablet See Rx Instructions PO ONCE #20 02/29/24 02/28/25 tabs magnesium 200 mg tablet 200 mg PO DAILY 10/14/24 02/28/25 potassium chloride 10 mEq 10 meq PO DAILY 10/14/24 02/28/25 capsule,extended release celecoxib 100 mg capsule (Celebrex) 100 mg PO BID #180 caps 10/28/24 02/28/25 Held on 02/28/25. Instructions: Resume on 03/05/25. HOLD while on ketorolac losartan 25 mg tablet 25 mg PO DAILY #90 tabs 11/20/24 02/28/25 amoxicillin 875 mg-potassium 1 tab PO BID 10 days #20 tabs 02/28/25 clavulanate 125 mg tablet ketorolac 10 mg tablet 10 mg PO QID 5 days #20 tabs 02/28/25 Previous Rx's ?Medication ?Instructions ?Recorded albuterol sulfate 90 mcg/actuation 2 puff inhalation Q6H PRN ##1 02/29/24 aerosol inhaler sildenafil 100 mg tablet See Rx Instructions PO ONCE #20 02/29/24 tabs celecoxib 100 mg capsule (Celebrex) 100 mg PO BID #180 caps 10/28/24 Held on 02/28/25. Instructions: Resume on 03/05/25. HOLD while on ketorolac losartan 25 mg tablet 25 mg PO DAILY #90 tabs 11/20/24 amoxicillin 875 mg-potassium 1 tab PO BID 10 days #20 tabs 02/28/25 clavulanate 125 mg tablet ketorolac 10 mg tablet 10 mg PO QID 5 days #20 tabs 02/28/25 Allergies Allergy/AdvReac Type Severity Reaction Status Date / Time Iodinated Contrast Media Allergy Unknown Verified 02/28/25 10:19 (Iodinated Contrast- Oral and IV Dye) aspartame AdvReac Intermediate MIGRAINE Verified 02/28/25 10:19 chocolate flavor AdvReac Mild MIGRAINE Verified 02/28/25 10:19 General Stated Complaint: Abd Prob SUNG: 3 Review of Systems All systems reviewed & are unremarkable except as noted in HPI and below Exam Narrative Exam Narrative: GENERAL APPEARANCE: Well-nourished, non-toxic, awake and alert, atraumatic, no acute distress. SKIN: Warm, pink, dry, intact, without rashes/lesions/ulcerations. HEAD: Normocephalic, atraumatic, normal hair distribution for gender/age. EYES: Normal conjunctiva, no exudates on lids/lashes. ENT: Nares patent, no circumoral cyanosis, no facial swelling NECK: Supple, trachea midline, painless cervical ROM. LUNGS/CHEST: Lungs CTA bilaterally- no rhonchi/rales/wheezes diffusely, non-labored respirations, normal A/P diameter, symmetrical expansion, no chest wall deformity HEART (CV/PV): Regular rate and rhythm without murmur, no peripheral edema, no JVD. ABDOMEN: Soft, non-distended, no guarding, LLQ tenderness without rebound tenderness, no tenderness at McBurney's point, negative Rovsing's, negative Monge sign, no CVA tenderness to percussion bilaterally, no palpable bulges at inguinal canals, scrotum is nonerythematous, nonswollen, intact cremasteric reflexes with mild tenderness to the left testicle only MSK: Normal ROM, no swelling/deformity to bilateral UEs or LEs, moving all extremities without weakness, no cyanosis, spine midline without tenderness, normal curvature. NEURO: Mental Status AAOx4 - alert to person, place, time, events No facial droop, no forehead involvement. Motor: No focal weakness - strength 5/5 in bilateral UEs and LEs, proximal and distal, symmetric. Sensory: sensation intact to light touch globally. Gait normal: patient ambulated without ataxia into ED room. PSYCH: euthymic, cooperative, pleasant, appropriate speech Course Vital Signs Vital signs: Vital Signs Temperature 36.9 C 02/28/25 10:16 Pulse 70 02/28/25 10:16 Respiratory Rate 16 02/28/25 10:16 Blood Pressure 188/110 H 02/28/25 10:16 Pulse Oximetry 98 02/28/25 10:16 Temperature 36.9 C 02/28/25 10:19 Pulse 70 02/28/25 10:19 Respiratory Rate 16 02/28/25 10:19 Blood Pressure 188/110 H 02/28/25 10:19 Pulse Oximetry 98 02/28/25 10:19 Pain Level 6 02/28/25 10:19 Lab/Test Results Lab/Test Results: Laboratory Tests Range/Units 02/28/25 02/28/25 10:45 11:35 WBC (4.4-10.8) 10^3/uL 6.49 RBC (4.36-5.78) 10^6/uL 4.57 Hgb (13.5-17.5) g/dL 13.0 L Hct (40.0-50.0) % 39.6 L MCV (80-95) fL 87 MCH (27.0-33.0) pg 28.4 MCHC (32.0-36.0) % 32.8 RDW (11.8-14.1) % 13.8 Plt Count (130-400) 10^3/uL 184 MPV (8.0-11.0) fL 9.3 Immature Gran % % 0.3 Neutrophils % % 68.5 Lymphocytes % % 19.9 Monocytes % % 8.2 Eosinophils % % 2.2 Basophils % % 0.9 Nucleated RBC % (0.0-0.3) % 0.0 Absolute Neutrophils (1.2-6.7) 10^3/uL 4.45 Absolute Lymphocytes (1.2-3.4) 10^3/uL 1.29 Absolute Monocytes (0.1-0.8) 10^3/uL 0.53 Absolute Eosinophils (0.0-0.7) 10^3/uL 0.14 Absolute Basophils (0.0-0.2) 10^3/uL 0.06 VBG Lactate (<or=2.0) mmol/L 0.8 Sodium (136-145) mmol/L 141 Potassium (3.5-5.1) mmol/L 4.2 Chloride (98-107) mmol/L 104 Carbon Dioxide (21.0-32.0) mmol/L 28.6 Anion Gap (3-11) mmol/L 8.4 BUN (7-18) mg/dL 17 Creatinine (0.70-1.30) mg/dL 1.0 Est GFR (CKD-EPI 2020) (mL/min/1.73m2) 79.97 Glucose (74-106) mg/dL 85 Calcium (8.5-10.1) mg/dL 9.2 Magnesium (1.8-2.4) mg/dL 2.4 Total Bilirubin (0.2-1.0) mg/dL 0.8 AST (15-37) U/L 16 ALT (16-63) U/L 23 Alkaline Phosphatase (46-116) U/L 62 Total Protein (6.4-8.2) g/dL 7.5 Albumin (3.4-5.0) g/dL 3.7 Lipase (<78) U/L 36 Urine Color (Yellow) Yellow Urine Clarity (Clear) Clear Urine pH (5-8) 6.0 Ur Specific [place] (1.005-1.025) 1.010 Urine Protein (Neg-Trace) mg/dL Negative Urine Ketones (Negative) mg/dL Negative Urine Blood (Negative) Negative Urine Nitrite (Negative) Negative Urine Bilirubin (Negative) Negative Urine Urobilinogen (Up to 0.2) mg/dL 0.2 Ur Leukocyte Esterase (Negative) Negative Urine Glucose (Negative) mg/dL Negative Medical Decision Making This dictation utilizes [id number] dictation software and may contain unedited grammatical errors. 70 year-old male presents to ED today by POV/ambulating with a chief complaint of lower abdominal/testicular pain with onset for the past few days with diarrhea ongoing for some months intermittently. Quality described as generalized lower abdominal pain, brief sharp radiation into testicles, no radiation to fever, nausea/vomiting, no issues with PO intake, denies chest pain/shortness of breath. Severity is described as mild to moderate. Palliating factors include relief after bowel movements. Provoking factors include nothing specific. Events leading up to the incident/Associated Symptoms: Patient endorses history of diverticulitis in the remote past. Patients' medical history: History of sciatica, BPH, neuropathy of right peroneal nerve. Family and social history: Noncontributory. Pertinent exam findings / vital signs include left lower quadrant tenderness, left testicular tenderness with intact cremasteric reflexes, no bulges at inguinal canals to palpation, no erythema or swelling to scrotum, no Rovsing's, no McBurney's point tenderness, negative Monge sign, benign cardiopulmonary exam, neuro intact, nontoxic and afebrile. Differential / pathologies of concern include diverticulitis, hernia, colitis, unlikely SBO, epididymitis or orchitis, prostatitis. Diagnostic studies of: - CBC, CMP, lactate, magnesium, lipase, UA, US scrotum, CT ABD/pelvis with contrast. - CBC shows no leukocytosis, mild chronic anemia - Lactate negative at 0.8 - CMP completely unremarkable - Lipase negative - Magnesium within normal limits - UA shows no sign of infection - Scrotal ultrasound shows bilateral hydroceles - CT ABD/pelvis shows an uncomplicated sigmoid diverticulitis without abscess or microperforation Interventions of: - 25 mg IV Benadryl and 125 mg IV Solu-Medrol for premedication due to his contrast allergy, Rx for Augmentin & ketorolac. ED Course/Assessment/Plan: 70-year-old male presents with left lower quadrant abdominal tenderness months of diarrhea intermittently and some scrotal pain since yesterday, CT shows an uncomplicated diverticulitis laboratory workup is reassuring for no sepsis, he had no microperforations or abscess on CT, his ultrasound showed bilateral hydroceles likely cause of mild pain versus referred pain from diverticula, patient did not need Tylenol or ibuprofen here, was started on Augmentin for diverticulitis in the outpatient setting with strict return criteria for any worsening of his pain especially fever, bloody diarrhea, intractable nausea or vomiting, severe increase in scrotal pain with redness and swelling. Findings not consistent with maldonado's gangrene, inguinal hernia/incarceration, perforated viscous, sepsis. Disposition of diverticulitis. Patient verbalized understanding of the plan and return to ED criteria and engaged in shared decision making. Medical Records Medical records reviewed: Yes I reviewed the patient's medical records. Imaging Data Radiologic Study: Attestation: I personally reviewed and interpreted this imaging study as follows: Imaging: Ultrasound Radiologist's impression: EXAM: US SCROTUM CLINICAL HISTORY: L testicular pain. TECHNIQUE: Scrotal ultrasound performed using grayscale, color-flow and spectral Doppler analysis. COMPARISON: No exams were available for comparison FINDINGS: RIGHT TESTICLE: 4.4 x 2.6 x 3.0 cm Echogenicity: Normal. Contour: Smooth. Mass: None seen. Microlithiasis: None. Hydrocele: 6 x 4 x 2.5 cm. Varicocele: None. Hernia: No peristalsing bowel loop identified. Epididymis: 6 millimeter spermatocele in the head. Scrotum: Normal. LEFT TESTICLE: 4.0 x 2.7 x 3.6 cm Echogenicity: Normal. Contour: Smooth. Mass: None seen. Microlithiasis: None. Hydrocele: 6 0.1 x 3.4 x 3.8 cm. Varicocele: None. Hernia: No peristalsing bowel loop identified. Epididymis: Normal. Scrotum: Normal. DOPPLER: Color: Symmetric and uniform, no hyperemia. Duplex: Bilateral testicular arterial waveforms visualized. IMPRESSION: Bilateral hydroceles. Normal appearing testicles. Radiologic Study #2: Attestation: I personally reviewed and interpreted this imaging study as follows: Imaging: CT Scan Radiologist's impression: EXAM: CT ABDOMEN PELVIS W CLINICAL HISTORY: diffuse lower abdominal tenderness, LLQ, RLQ. TECHNIQUE: Imaging Protocol: Axial computed tomography images with coronal and sagittal reformatted images were created and reviewed CONTRAST MATERIAL: Intravenous: Omnipaque 350 Contrast volume:75 ml Oral: no COMPARISON: CT ABD PELVIS WO CONTRAST from 12/11/2017 FINDINGS: ABDOMEN and PELVIS: Lung Bases: No acute findings. Liver: Normal density. No suspicious mass. Stable small cysts. Gallbladder and biliary tract: No radiodense calculus. No wall thickening or pericholecystic fluid. No biliary dilation. Pancreas: Normal density. No abnormal calcifications or inflammatory process. No evidence of mass. Spleen: Normal. Kidneys: Normal size, contour and axis. No radiodense stones. No obstructive uropathy. No suspicious masses seen. Adrenal glands: No masses seen. Vasculature: Abdominal aorta non-dilated. Soft tissues: Unremarkable. Bladder: No gross wall thickening. No calculi.No focal mass. Bowel: No obstruction. Diverticulosis is present in the sigmoid region. There is wall thickening and surrounding inflammation in the mid sigmoid, consistent with diverticulitis. There is no evidence of abscess or perforation. Appendix normal. Peritoneal cavity: No ascites. No focal collection. No mesenteric inflammatory response. No free air. Bones: Unremarkable for age. Reproductive organs: The prostate is mildly enlarged. Lymph nodes: No pathologically enlarged lymph nodes. IMPRESSION:: Sigmoid diverticulitis. Findings were called to the ER provider. Lab Data Lab results reviewed: Yes I reviewed the patient's lab results. Labs: Laboratory Tests Range/Units 02/28/25 02/28/25 10:45 11:35 WBC (4.4-10.8) 10^3/uL 6.49 RBC (4.36-5.78) 10^6/uL 4.57 Hgb (13.5-17.5) g/dL 13.0 L Hct (40.0-50.0) % 39.6 L MCV (80-95) fL 87 MCH (27.0-33.0) pg 28.4 MCHC (32.0-36.0) % 32.8 RDW (11.8-14.1) % 13.8 Plt Count (130-400) 10^3/uL 184 MPV (8.0-11.0) fL 9.3 Immature Gran % % 0.3 Neutrophils % % 68.5 Lymphocytes % % 19.9 Monocytes % % 8.2 Eosinophils % % 2.2 Basophils % % 0.9 Nucleated RBC % (0.0-0.3) % 0.0 Absolute Neutrophils (1.2-6.7) 10^3/uL 4.45 Absolute Lymphocytes (1.2-3.4) 10^3/uL 1.29 Absolute Monocytes (0.1-0.8) 10^3/uL 0.53 Absolute Eosinophils (0.0-0.7) 10^3/uL 0.14 Absolute Basophils (0.0-0.2) 10^3/uL 0.06 VBG Lactate (<or=2.0) mmol/L 0.8 Sodium (136-145) mmol/L 141 Potassium (3.5-5.1) mmol/L 4.2 Chloride (98-107) mmol/L 104 Carbon Dioxide (21.0-32.0) mmol/L 28.6 Anion Gap (3-11) mmol/L 8.4 BUN (7-18) mg/dL 17 Creatinine (0.70-1.30) mg/dL 1.0 Est GFR (CKD-EPI 2020) (mL/min/1.73m2) 79.97 Glucose (74-106) mg/dL 85 Calcium (8.5-10.1) mg/dL 9.2 Magnesium (1.8-2.4) mg/dL 2.4 Total Bilirubin (0.2-1.0) mg/dL 0.8 AST (15-37) U/L 16 ALT (16-63) U/L 23 Alkaline Phosphatase (46-116) U/L 62 Total Protein (6.4-8.2) g/dL 7.5 Albumin (3.4-5.0) g/dL 3.7 Lipase (<78) U/L 36 Urine Color (Yellow) Yellow Urine Clarity (Clear) Clear Urine pH (5-8) 6.0 Ur Specific [place] (1.005-1.025) 1.010 Urine Protein (Neg-Trace) mg/dL Negative Urine Ketones (Negative) mg/dL Negative Urine Blood (Negative) Negative Urine Nitrite (Negative) Negative Urine Bilirubin (Negative) Negative Urine Urobilinogen (Up to 0.2) mg/dL 0.2 Ur Leukocyte Esterase (Negative) Negative Urine Glucose (Negative) mg/dL Negative PFSH All Active Problems (Updated 02/28/25 @ 13:02 by EVELYNE Dobbins) Diverticulitis (Chronic) Rheumatoid arthritis (Chronic) Right knee pain (Acute) Essential hypertension (Acute) Right leg pain (Acute) Superficial phlebitis of right leg (Acute) Sciatica of right side (Acute) Sexual function problem (Acute) Asthma (Chronic) Aneurysm, ascending aorta (Acute 08/24/15) Followed at [facility]. Stable May 2019 BPH loc w/o ur obs/LUTS (Acute 08/24/15) Back pain (Acute) Overactive bladder (Acute 08/24/15) Neuropathy of right peroneal nerve (Acute) Lumbosacral radiculopathy at S1 (Acute) Leg cramps (Acute) Allergic rhinitis (Acute) Primary osteoarthritis of both hands (Acute 11/21/17) Shoulder pain (Acute) Medical History Derange anterior horn medial meniscus left knee due to old injury (08/24/15) Got better with physical therapy Neck pain Surgical History S/P skin cancer resection S/P lumbar spine operation Status post rotator cuff repair Rotator Cuff Repair (~1999) RIGHT Family History Brother Dissection of aorta Aortic aneurysm Brother Sarcoma Aortic aneurysm Mother , 92 Heart disease Father Dissection of aorta Heart disease Brother Aortic aneurysm Brother Aortic aneurysm Social History Smoking/Tobacco Use Status: Never Smoking risk assessment performed?: Yes Alcohol Intake: current Alcohol Intake frequency: 0-2 drinks per day Alcohol type: beer and wine Drug use: Never Substance use type: does not use Caregiver/Support person: No Household members: spouse Housing: house Communication Needs: None Do you need help understanding health information?: Rarely Pets and animals: Yes Pets and animals: dog(s) Sexually active: No Do you think of yourself as: straight/heterosexual Current gender identity: male What is your relationship status?: How often do you talk on the phone with friends or family?: decline to answer How often do you get together with friends or relatives?: decline to answer How often do you attend restorationist or holiness services?: decline to answer Do you belong to any clubs or organized social groups?: decline to answer Panel score (0-1 are the most socially isolated patients): 1 What type of physical activity do you participate in: walking Duration: > 90 minutes/day Frequency: 5-6 times per week Nimco/Restoration: Restorationism Special nimco needs: No Seatbelt use: always Drive intox or ride w/intox route driver coin machines: No Do you feel safe at home: Yes Do you feel safe in your relationship?: Yes
[2025-02-28 12:29] VITALS: BP 199/107; PULSE 60; RESP 16; O2SAT 98
[2025-02-28] MEDS: Omnipaque 350 MG/ML 100 ML BTL IJ (12:31)
[2025-02-28] MEDS: Normal Saline - Diluent 50 ML VIAL IJ (12:32)
[2025-02-28] MEDS: Normal Saline Flush 10 ML SYR IVP (12:33)
--- NOTE | 2025-02-28 12:35 | DI.CT_ITS ---
Exam(s) CT ABDOMEN PELVIS W EXAM: CT ABDOMEN PELVIS W CLINICAL HISTORY: diffuse lower abdominal tenderness, LLQ, RLQ. TECHNIQUE: Imaging Protocol: Axial computed tomography images with coronal and sagittal reformatted images were created and reviewed CONTRAST MATERIAL: Intravenous: Omnipaque 350 Contrast volume:75 ml Oral: no COMPARISON: CT ABD PELVIS WO CONTRAST from 12/11/2017 FINDINGS: ABDOMEN and PELVIS: Lung Bases: No acute findings. Liver: Normal density. No suspicious mass. Stable small cysts. Gallbladder and biliary tract: No radiodense calculus. No wall thickening or pericholecystic fluid. No biliary dilation. Pancreas: Normal density. No abnormal calcifications or inflammatory process. No evidence of mass. Spleen: Normal. Kidneys: Normal size, contour and axis. No radiodense stones. No obstructive uropathy. No suspicious masses seen. Adrenal glands: No masses seen. Vasculature: Abdominal aorta non-dilated. Soft tissues: Unremarkable. Bladder: No gross wall thickening. No calculi.No focal mass. Bowel: No obstruction. Diverticulosis is present in the sigmoid region. There is wall thickening and surrounding inflammation in the mid sigmoid, consistent with diverticulitis. There is no evidence of abscess or perforation. Appendix normal. Peritoneal cavity: No ascites. No focal collection. No mesenteric inflammatory response. No free air. Bones: Unremarkable for age. Reproductive organs: The prostate is mildly enlarged. Lymph nodes: No pathologically enlarged lymph nodes. IMPRESSION:: Sigmoid diverticulitis. Findings were called to the ER provider. RADIATION DOSE DELIVERED: 350.26mGy.cm Total DLP DATA REPOSITORY: All CT scans at this facility are submitted to the National Radiology Data Registry (NRDR) Dose Index Registry (DIR) with the [employer] (ACR). RADIATION OPTIMIZATION: All CT scans at this facility use at least one of these dose optimization techniques: automated exposure control; mA and/or kV adjustment per patient size (includes targeted exams where dose is matched to clinical indication); or iterative reconstruction.
[2025-02-28 13:20] VITALS: BP 142/80; PULSE 90; RESP 18; TEMP 37.1; O2SAT 97
== END 2025-02-28 13:21 | disposition home or self-care (01) ==
PROVIDERS: Emergency Provider Physician Assistant; PCP Nurse Practitioner Family
DX: K57.92 Diverticulitis of intestine, part unspecified, without perforation or abscess without bleeding (principal); R10.30 Lower abdominal pain, unspecified; N50.811 Right testicular pain; N50.812 Left testicular pain; N43.3 Hydrocele, unspecified
CPT/HCPCS: 99284; 99285; 96374; 96375; 36415; 80053; 83690; 74177; 76870; 81003; 83605; 83735; 85025; J1200; J2919; J3490